=== PATIENT | male | born 1950 | race Caucasian/White ===

== ENCOUNTER 2016-11-15 20:09 | Emergency (ER) | payer BC ==
[2016-11-15] MEDS ORDERED: LORazepam INJ* 2 MG/ML 1 ML VIAL IM ONE (20:59)
[2016-11-15] MEDS ORDERED: LORazepam TAB(*) 1 MG PO ONE (21:00)
--- NOTE | 2016-11-15 21:12 | UC ---
Psychiatric Complaint HPI - HPI Summary HPI Summary: terrible anxiety and panic symptoms since putting down his 13 year old dog 2 days ago. Has a history of anxiety disorder which is triggered by traumatic events. Takes Zoloft daily, which is usually all he needs. But when there is a traumatic event, he can't sleep, can't eat, can't concentrate, cries a lot, paces around the house all day, feels anxious and jittery. Has been helped in the past by Xanax 0.5mg, but today they didn't help much. He has had a prescription of Xanax for the past 3 years, not taking them. Denies any suicidal or homicidal thoughts - History Of Current Complaint Chief Complaint: UCGeneralIllness Stated Complaint: PANIC ATTACK/ANXIETY Time Seen by Provider: 11/15/16 20:48 Hx Obtained From: Patient, Family/Consumer Safety Officer - Onset/Duration: Gradual Onset, Lasting Days - 2 Timing: Constant Severity Initially: Mild Severity Currently: Moderate Character: Fearful, Anxious Aggravating Factor(s): Recent Stress - had to put down old dog Alleviating Factor(s): Medication - Xanax helps a little, but he feels like he can't rest tonight Associated Signs And Symptoms: Sleep Disturbance, Appetite Change, Social Withdrawal Related History: Positive For: Prior Psychiatric Issues - anxiety/panic disorders, sees Dr. Mathew for it Recent Stressor(s): as above, dog put down - Risk Factor(s) Completed Suicide Risk Factors: Male, Age Greater Than 60, White Citizen Of [place] - Allergies/Home Medications Allergies/Adverse Reactions: Allergies Allergy/AdvReac Type Severity Reaction Status Date / Time Amoxicillin Allergy Unknown Verified 01/04/14 11:54 Reaction Details PMH/Surg Hx/FS Hx/Imm Hx - Additional Past Medical History Additional PMH: anxiety/panic attacks Cardiovascular History Of: Reports: Cardiac Disorders - high cholesterol, Hypertension - Surgical History Surgical History: Yes Surgery Procedure, Year, and Place: prostate removal 10 years ago - Family History Known Family History: Negative: Seizure Disorder - Social History Occupation: Employed Full-time Lives: With Family Alcohol Use: None Substance Use Type: None Smoking Status (MU): Heavy Every Day Tobacco Smoker Review of Systems Constitutional: Negative Skin: Negative Eyes: Negative ENT: Negative Respiratory: Negative Cardiovascular: Negative Gastrointestinal: Negative Genitourinary: Negative Motor: Negative Neurovascular: Negative Musculoskeletal: Negative Neurological: Negative Psychological: Anxious, Other - sad about the dog, feels jittery, can't concentrate, can't rest, can't sit still All Other Systems Reviewed And Are Negative: Yes Physical Exam Triage Information Reviewed: Yes Appearance: Well-Appearing, No Pain Distress, Well-Nourished Vital Signs: Initial Vital Signs Temp 98.3 F 11/15/16 20:19 Pulse 68 11/15/16 20:19 Resp 16 11/15/16 20:19 BP 170/96 11/15/16 20:19 Pulse Ox 100 11/15/16 20:19 Vital Signs Reviewed: Yes Eye Exam: Normal ENT Exam: Normal Neck exam: Normal Respiratory Exam: Normal Cardiovascular Exam: Normal Musculoskeletal Exam: Normal Neurological Exam: Normal Psychological Exam: Other - he is tearful when talking about his dog. Otherwise , he is pleasant and conversant, normal conversational content, coherent and logical. Denies any suicidal or homicidal thoughts. Psychological: Positive: Normal Response To Family, Age Appropriate Behavior Skin Exam: Normal Psych Complaint Course/Dx - Differential Dx/Diagnosis Differential Diagnosis/HQI/PQRI: Anxiety, Depression Provider Diagnoses: anxiety Discharge - Discharge Plan Condition: Stable Disposition: HOME Prescriptions: LORazepam TAB(*) [Ativan TAB(*)] 1 mg PO Q6H PRN #30 tab MDD 4 mg PRN Reason: anxiety/panic Patient Education Materials: Anxiety (ED) Referrals: Fam Mathew MD [Primary Care Provider] - Additional Instructions: Call Dr. Mathew tomorrow to set up a follow-up appointment. If you feel like you are at risk of harming yourself or others, go to the ER.
[2016-11-15] MEDS ORDERED: LORazepam TAB(*) 1 MG ONE (21:17)
[2016-11-15 21:44] VITALS: BP 158/91
== END 2016-11-15 21:42 | disposition home or self-care (01) ==
LOC: UCEAST 20:09
DX: F43.22 Adjustment disorder with anxiety (principal); Z88.0 Allergy status to penicillin; F17.210 Nicotine dependence, cigarettes, uncomplicated
CPT/HCPCS: 96372; 99213; A9270-GY; G0463; J2060

== ENCOUNTER 2018-05-19 06:35 | Day surgery (SDC) | payer MEDICARE, BC ==
--- NOTE | 2018-05-14 23:04 | HP ---
CC: Dr. Fam Mathew* HISTORY AND PHYSICAL: DATE OF PLANNED ADMISSION AND SURGERY: 05/19/18 HISTORY OF PRESENT ILLNESS: Mr. Thomas is a 68-year-old white male who is admitted with proximal right ureteral calculi for cystoscopy, placement of right ureteral stent, and for possible right ureteroscopy, and laser lithotripsy. I have been following Mr. Thomas since the year 1999 because of renal calculus disease. He required shockwave lithotripsy of right renal calculi in 1999 and again in 2002. In 2005, he was diagnosed with a Carnegie 6 adenocarcinoma of the prostate and underwent an uncomplicated radical retropubic prostatectomy. He has done very well and has had no recurrent disease and his PSA has remained at 0.0. He was evaluated in my office 2 weeks ago, because of sudden onset of right flank pain. He did not have any fever or chills. Renal ultrasound done in the office showed a 1 cm calculus in the proximal right ureter, about 2 cm distal to the ureteropelvic junction. There was only mild hydronephrosis. He was managed conservatively with alpha-abbie and pain medication. He remained minimally symptomatic. Followup renal ultrasound done a week after his initial presentation showed that the calculus is still in the same location. KUB confirmed the presence of a cluster of calculi in the area of the proximal right ureter plus calculi in his right kidney. Because of the above history, the size of the stone, and its location in the area of the proximal ureter, the above procedure was advised and accepted. PAST MEDICAL HISTORY AND SYSTEM REVIEW: Because of the history of renal calculus disease, he has been maintained on allopurinol 300 mg daily, vitamin B6 50 mg daily, calcium citrate 500 mg daily, and potassium citrate 20 mEq daily. He has hyperlipidemia, on atorvastatin 20 mg daily. He is hypertensive, on lisinopril 5 mg daily. He is on sertraline. He takes lorazepam as needed for sleep. ALLERGIES: He reports being allergic to PENICILLIN, which gives him hives. FAMILY HISTORY: Relevant for his father and brother who have prostate carcinoma. PHYSICAL EXAMINATION GENERAL: Pleasant, healthy, and fit-looking white male. VITAL SIGNS: Blood pressure 120/80, pulse of 80. LUNGS: Clear. HEART: Regular and rhythmic. No murmurs. ABDOMEN: Soft. No masses, no tenderness and no CVA tenderness. IMPRESSION: One cm calculus in the proximal right ureter with associated mild right hydronephrosis and non-obstructing right renal calculus. Status post radical retropubic prostatectomy for carcinoma of the prostate with no evidence of recurrent disease. PLAN: Cystoscopy and placement of right ureteral stent. If the stone is accessible, right ureteroscopy and laser lithotripsy will be performed at the same time. It is more likely that the patient will require a staged procedure and following the stent placement, a right ureteroscopy and laser lithotripsy for definitive treatment of the stone. I discussed the above plans in detail with Terrence and his and all their questions were answered. [id number]/[facility]PS #: [id number] MTDD
[~2018-05-19 06:35] MED LIST: Buffered Lidocaine 0.9% SYRIN* 5 ML/SYR SYRINGE INTRADERM ONE; Dexamethasone IV* 4 MG/ML 1 ML (4 MG) IV SLOW PU ONE; Famotidine IV* 10 MG/ML 2 ML (20 mg) IV ONE
[2018-05-19] MEDS ORDERED: Famotidine IV* 10 MG/ML 2 ML (20 mg) ONE (06:52)
[2018-05-19] MEDS ORDERED: Levofloxacin 750 MG IVPREMIX(* 750 MG/150 ML BAG ONE (06:52)
[2018-05-19] MEDS ORDERED: Dexamethasone IV* 4 MG/ML 1 ML (4 MG) ONE (06:52)
[2018-05-19] MEDS ORDERED: Iohexol 180 (CONTRAST) 10 ML SDV IV ONE (07:09)
[2018-05-19] MEDS ORDERED: fentaNYL* 50 MCG/ML 2 ML VIAL (100 MCG VIAL) IV PRN (07:15)
[2018-05-19] MEDS ORDERED: Naloxone* 0.4 MG/ML 1 ML VIAL IV PRN (07:15)
[2018-05-19] MEDS ORDERED: DiMENhydriNATE IV* 50 MG/ML VIAL IV PUSH PRN (07:15)
[2018-05-19] MEDS ORDERED: HYDROcodone/ACETAMIN 5-325 MG* 1 TAB PO PRN (07:15)
[2018-05-19] MEDS ORDERED: oxyCODONE/Acetamin 5/325 MG* TAB PO PRN (07:15)
[2018-05-19] MEDS ORDERED: fentaNYL* 50 MCG/ML 2 ML VIAL (100 MCG VIAL) ONE (07:16)
[2018-05-19] MEDS ORDERED: Midazolam* 1 MG/ML 5 ML VIAL (5 MG) ONE (07:16)
[2018-05-19] MEDS ORDERED: Propofol* 10 MG/ML 20 ML BTL IV PUSH ONE (07:37)
[2018-05-19] MEDS ORDERED: Lidocaine 2% PF * 5 ML VIAL ONE (07:37)
[2018-05-19] MEDS ORDERED: Ondansetron INJ* 2 MG/ML VIAL ONE (07:53)
[2018-05-19] MEDS ORDERED: EPHEDrine (Pressors)* 50 MG/ML VIAL ONE (08:01)
[2018-05-19 09:11] VITALS: BP 137/84
--- NOTE | 2018-05-19 09:17 | RAD ---
INDICATION: Right ureteral stent insertion COMPARISONS: May 07, 2018 TECHNIQUE: Fluoroscopy was provided for a retrograde pyelogram and stent placement. Total fluoroscopy time is: 8 seconds FINDINGS: Contrast is noted within the renal collecting system. Renal calculi are noted. A ureteral stent is noted. IMPRESSION: FLUOROSCOPY WAS PROVIDED FOR A RETROGRADE PYELOGRAM AND STENT PLACEMENT CPT II Codes: G9500
--- NOTE | 2018-05-19 09:43 | OP ---
DATE OF OPERATION: 05/19/18 - [facility] DATE OF : 54 SURGEON: Dallin Najera MD ANESTHESIOLOGIST: Dr. Nirmal Shepherd. ANESTHESIA: General. PRE-OP DIAGNOSES: 1. Right renal calculi. 2. Right ureteral calculus. POST-OP DIAGNOSIS: Right renal calculi. OPERATIVE PROCEDURE: 1. Cystoscopy. 2. Right retrograde pyelography and placement of right ureteral stent (6-Martiniquais ). INDICATION FOR PROCEDURE: Mr. Thomas is a 68-year-old white male who is a known stone former and who presented about 2 weeks ago with episodes of intermittent right flank pain and right renal colic. Workup with the KUB and a renal ultrasound showed right renal calculi and a 1 cm calculus in the proximal right ureter. The patient was improved spontaneously. Recent KUB showed 4 calculi in the lower pole calyx of the right kidney each measuring about 8 mm in size. No radiopaque calculus was noted in the proximal ureter. With the still concern about residual stone in the right ureter, the patient is taken to the operating room for the above procedure. PATHOLOGY: At cystoscopy, the penile and bulbar urethra looked normal. The external sphincter looked normal. There was absence of the prostate consistent with a history of radical retropubic prostatectomy for prostate carcinoma. The bladder neck was wide open without any contracture. Examination of the bladder showed normal ureteral orifices. No suspicious bladder lesion seen. No calculi or diverticula noted. There was some difficulty intubating the right ureter with the guidewire because of the radical prostatectomy changes. At fluoroscopy, 4 right renal calculi were noted. All of each measured about 8 mm in size. There were 2 calculi in the lower pole calyx and 2 calculi in the area of the right renal pelvis. Upon right retrograde pyelography, there was no ureteral calculus noted and no hydronephrosis. The patient was most likely having intermittent episodes of right renal colic secondary to one of the calculi in the right renal pelvis acting as a ball valve explaining the findings on the ultrasound and the clinical history. DESCRIPTION OF PROCEDURE: After successful general anesthesia, the patient was placed in the lithotomy position and was prepped and draped for a cystoscopy. Cystoscopy was performed. The bladder was carefully inspected and the above findings were noted. After several attempts, a flexible tip guidewire was successfully introduced into the right ureter and position in the area of the renal pelvis. A 5-Martiniquais open- ended catheter was fed on top of the guidewire. Retrograde pyelography was performed demonstrating the above anatomy of the right kidney and the pathology noted. Because of the location of the stones, it was decided to place a stent and not to attempt a ureteroscopy. A size 6-Martiniquais stent was then placed with the proximal end coiling in the renal pelvis on the collecting system and distal end coiling inside the bladder. There was good drainage of contrast from the kidney and no extravasation. The patient tolerated the procedure well and left the operating room in good condition. The plan is to obtain the KUB postoperatively. They will decide on the definitive treatment of the stones based on their location whether the patient is not required PCNL. [id number]/CPS #: [id number] MTDD
--- NOTE | 2018-05-19 11:02 | RAD ---
HISTORY: s/p right stent placement COMPARISONS: May 07, 2018 VIEWS: Frontal views of the abdomen. FINDINGS: BOWEL: There is a nonspecific bowel gas pattern, with nondilated small bowel gas noted. CALCULI: Again noted are multiple calculi overlying the right renal protocol shadows, similar to the previous examination. There is been interval placement of a right ureteral stent. BONES AND SOFT TISSUES: Degenerative changes are noted. OTHER FINDINGS: None . IMPRESSION: RIGHT NEPHROLITHIASIS WITH A RIGHT URETERAL STENT.
== END 2018-05-19 09:12 | disposition home or self-care (01) ==
LOC: OR 06:35
PROVIDERS: ATTEND Urology
DX: N20.0 Calculus of kidney (principal); Z87.442 Personal history of urinary calculi; Z85.46 Personal history of malignant neoplasm of prostate; I10 Essential (primary) hypertension; E78.5 Hyperlipidemia, unspecified; Z87.891 Personal history of nicotine dependence; F41.8 Other specified anxiety disorders
CPT/HCPCS: 74018; 74420; J1100; J2250; J2405; J2704; J3010

== ENCOUNTER → 2018-05-26 08:37 | Day surgery (SDC) | payer MEDICARE, BC ==
[~2018-05-26 08:37] MED LIST changes: +Atropine 1MG/ML INJ* 1 ML VIAL ONE; -Dexamethasone IV* 4 MG/ML 1 ML (4 MG) IV SLOW PU ONE; +Dexamethasone IV* 4 MG/ML 1 ML (4 MG) ONE; +EPHEDrine (Pressors)* 50 MG/ML VIAL ONE; -Famotidine IV* 10 MG/ML 2 ML (20 mg) IV ONE; +HYDROcodone/ACETAMIN 5-325 MG* 1 TAB PO PRN; +Midazolam* 1 MG/ML 2 ML VIAL (2 MG) ONE; +Naloxone* 0.4 MG/ML 1 ML VIAL IV PRN; +Ondansetron INJ* 2 MG/ML VIAL IV PRN; +Ondansetron INJ* 2 MG/ML VIAL ONE; +Propofol* 10 MG/ML 20 ML BTL IV PUSH ONE; +cefTRIAXone(*) 2 GM ADDV.VIAL IVPB ONE; +fentaNYL* 50 MCG/ML 2 ML VIAL (100 MCG VIAL) IV PRN; +fentaNYL* 50 MCG/ML 2 ML VIAL (100 MCG VIAL) ONE
--- NOTE | 2018-05-26 09:11 | RAD ---
INDICATION: Preop lithotripsy, right renal calculi. COMPARISON: Comparison is made with a prior KUB series from May 19, 2018. TECHNIQUE: A single frontal supine film of the abdomen was obtained FINDINGS: The small bowel and colon appear nondistended. There are multiple calculi which project over the mid and lower pole of the right kidney. There is a right ureteral stent present which demonstrates normal course. There are multiple surgical clips which project over the pelvis consistent with patient's history of a prior prostatectomy. IMPRESSION: MULTIPLE RIGHT RENAL CALCULI, URETERAL STENT IN PLACE.
[2018-05-26 13:49] VITALS: BP 140/84
--- NOTE | 2018-05-26 16:45 | RAD ---
Indication: Status post RIGHT side lithotripsy. Comparison: 0859 hours exam of the same date. Technique: Supine view of the abdomen. REPORT AND IMPRESSION: #. The RIGHT ureteral stent has been removed. No suspicious calcifications evident along the course of the RIGHT ureter. #. Significant fragmentation of previous well-formed stones at the level of the RIGHT renal pelvis with the residual fragments measuring up to approximate 0.3 cm maximum dimension. No significant change in 0.8 cm maximum dimension stone at the lower pole of the RIGHT kidney. #. No LEFT side urolithiasis evident. #. Pelvic surgical clips. Unremarkable soft tissue contours.
--- NOTE | 2018-05-26 22:11 | OP ---
CC: Dr. Mathew * DATE OF OPERATION: 05/26/18 - [facility] DATE OF : 54 SURGEON: Dallin Najera MD ANESTHESIOLOGIST: Dr. Maxwell Nielson. ANESTHESIA: General. PRE-OP DIAGNOSES: 1. Right renal calculi. 2. Status post placement of right ureteral stent. POST-OP DIAGNOSES: 1. Right renal calculi. 2. Status post placement of right ureteral stent. OPERATIVE PROCEDURE: 1. Shock-wave lithotripsy of right renal calculi ( In renal pelvis, 2 calculi, 8 mm each). 2. Cystoscopy and removal of right ureteral stent. INDICATIONS FOR PROCEDURE: Mr. Thomas is a 68-year-old white male who had placement of a right ureteral stent one week ago. Post op KUB showed 2 calculi, 8 mm each in the renal pelvis, and 2 other calculi measuring 8 mm each in the lower pole chano of the right kidney. The calculi in the renal pelvis were felt to be amenable to shock-wave lithotripsy and the patient is admitted for the above procedure. PATHOLOGY: Preoperative KUB showed again 2 calculi each measuring 8 mm in diameter located in the right renal pelvis. Two other calculi 8 mm each were superimposed in the lower pole chano of the right kidney. This stent was in good position. At cystoscopy, there was hematuria. There was absence of the prostate consistent with a history of radical prostatectomy. There was no bladder neck contracture. The distal limb of the stent was seen coming from the right orifice. DESCRIPTION OF PROCEDURE: After successful general anesthesia, the patient was placed in the supine position on the shock-wave lithotripsy table. The position of the patient and of the generator were adjusted to have the 2 stones in the renal pelvis in the focus of the shock waves. A total of 2,400 shock waves were then delivered at a rate of 60 shocks per minute. Because of PVCs, the shock waves were coupled with his heart rate, which was running at about 66. At the completion of the treatment, there was very good fragmentation of both calculi. Decision was then made to remove the stent. The bladder was drained with a straight catheter. Flexible cystoscopy was performed. The stent was identified , grabbed, and pulled out intact. The patient tolerated the procedure well and left the operating room in good condition. The plan is to obtain a KUB postoperatively. The patient was instructed for the possible development of right renal colic as the fragments are passing. He will be seen in my office in about 10 to 12 days for followup. [id number]/[facility] #: [id number] MTDD
== END | disposition home or self-care (01) ==
LOC: OR 08:37
PROVIDERS: ATTEND Urology
DX: N20.0 Calculus of kidney (principal); R31.9 Hematuria, unspecified; Z85.46 Personal history of malignant neoplasm of prostate; E78.5 Hyperlipidemia, unspecified; I10 Essential (primary) hypertension; F41.9 Anxiety disorder, unspecified
CPT/HCPCS: 74018; J0461; J0696; J1100; J2250; J2405; J2704; J3010

== ENCOUNTER 2018-08-04 05:50 | Day surgery (SDC) | payer MEDICARE, BC ==
--- NOTE | 2018-07-18 07:49 | HP ---
CC: Dr. Mathew * HISTORY AND PHYSICAL: DATE OF PLANNED ADMISSION AND SURGERY: 08/04/18 HISTORY OF PRESENT ILLNESS: Mr. Terrence Thomas is a 68-year-old white male who is admitted with right renal calculi for shockwave lithotripsy and for cystoscopy and placement of right ureteral stent. Mr. Terrence Thomas is a known stone former and on his recent workup and imaging, he was noted to have 4 right renal calculi each measuring about 6 to 8 mm. Two of the stones were located in the renal pelvis and 2 stones in the lower pole calyx of his right kidney. On 05/19/18, he had placement of right ureteral stent and on 05/26/18, he underwent shockwave lithotripsy of the 2 calculi in the right renal pelvis followed by stent removal. Following the stent removal, he passed all the stone fragments. He still had 2 residual right renal calculi that were not treated. Followup imaging with KUB and renal ultrasound showed one of the 2 calculi has moved to the right ureteropelvic junction causing no obstruction and no symptoms. The other calculus is still in the lower pole calyx of the right kidney. The patient is totally asymptomatic and having no renal or voiding symptoms. He is now admitted for treatment of the above stones. PAST MEDICAL HISTORY AND SYSTEM REVIEW: He has a history of prostate carcinoma and had undergone radical prostatectomy in 2005. He has done very well and his PSA has remained undetectable at 0.0. He has no urinary incontinence and no voiding symptoms. MEDICATIONS: The patient is maintained on: 1. Allopurinol 300 mg daily. 2. Vitamin B6 50 mg daily. 3. Calcium citrate 500 mg daily. 4. Potassium citrate 20 mEq daily. All those medications are for treatment and prevention of renal calculi. He has hyperlipidemia, on Lipitor 20 mg daily and has hypertension, on 5 mg daily. He is on sertraline and lorazepam as needed. ALLERGIES: He reports being allergic to PENICILLIN, which gives him hives. PHYSICAL EXAMINATION GENERAL: Pleasant, healthy and fit looking white male. VITAL SIGNS: Blood pressure 130/80, pulse of 70. LUNGS: Clear. HEART: Regular and rhythmic. No murmurs. ABDOMEN: Soft. No masses. No tenderness and no CVA tenderness. IMPRESSION: Residual 2 right renal calculi, each is above 6 to 8 mm in size, 1 in the lower pole calyx and the other calculus in the renal pelvis. PLAN: The plan is for shockwave lithotripsy of the right renal calculi and placement of right ureteral stent. I discussed the above plans in detail with the patient. All his questions were answered. The patient was instructed to call promptly if he has an episode of renal colic and in that case he will require stent placement followed at a later date by shockwave lithotripsy. [id number]/[facility] #: [id number] MARU
[2018-08-04] MEDS ORDERED: Famotidine IV* 10 MG/ML 2 ML (20 mg) IV ONE (06:00)
[2018-08-04] MEDS ORDERED: Buffered Lidocaine 0.9% SYRIN* 5 ML/SYR SYRINGE INTRADERM ONE (06:00)
[2018-08-04] MEDS ORDERED: Famotidine IV* 10 MG/ML 2 ML (20 mg) ONE (06:08)
[2018-08-04] MEDS ORDERED: Levofloxacin 750 MG IVPREMIX(* 750 MG/150 ML BAG ONE (06:08)
[2018-08-04] MEDS ORDERED: Morphine VIAL* 10 MG/ML 1 ML VIAL ONE (06:48)
[2018-08-04] MEDS ORDERED: Iohexol 180 (CONTRAST) 10 ML SDV IV ONE (06:59)
[2018-08-04] MEDS ORDERED: Dexamethasone IV* 4 MG/ML 1 ML (4 MG) ONE (07:09)
[2018-08-04] MEDS ORDERED: Propofol* 10 MG/ML 20 ML BTL IV PUSH ONE (07:09)
[2018-08-04] MEDS ORDERED: Lidocaine 2% PF * 5 ML VIAL ONE (07:09)
[2018-08-04] MEDS ORDERED: Ondansetron INJ* 2 MG/ML VIAL ONE (07:09)
[2018-08-04] MEDS ORDERED: Ketorolac INJ* 30 MG/ML 1 ML VIAL ONE (07:09)
[2018-08-04] MEDS ORDERED: KETAMINE HCL* 50 MG/ML 10 ML VIAL ONE (07:09)
[2018-08-04] MEDS ORDERED: fentaNYL* 50 MCG/ML 2 ML VIAL (100 MCG VIAL) ONE (07:09)
[2018-08-04] MEDS ORDERED: Midazolam* 1 MG/ML 5 ML VIAL (5 MG) ONE (07:10)
[2018-08-04] MEDS ORDERED: fentaNYL* 50 MCG/ML 2 ML VIAL (100 MCG VIAL) IV PRN (07:25)
[2018-08-04] MEDS ORDERED: oxyCODONE/Acetamin 5/325 MG* TAB PO PRN (07:25)
[2018-08-04] MEDS ORDERED: Ondansetron INJ* 2 MG/ML VIAL IV PRN (07:25)
[2018-08-04] MEDS ORDERED: Naloxone* 0.4 MG/ML 1 ML VIAL IV PRN (07:25)
[2018-08-04] MEDS ORDERED: EPHEDrine (Pressors)* 50 MG/ML VIAL ONE (08:05)
[2018-08-04 09:57] VITALS: BP 143/83
--- NOTE | 2018-08-04 23:08 | OP ---
CC: Dr. Mathew * DATE OF OPERATION: 08/04/18 - [facility] DATE OF : 54 SURGEON: Dallin Najera MD ANESTHESIOLOGIST: Dr. Daren Padilla. ANESTHESIA: General. PRE-OP DIAGNOSIS: Right renal calculi. POST-OP DIAGNOSIS: Right renal calculi. OPERATIVE PROCEDURE: 1. Cystoscopy. 2. Right retrograde pyelography and placement of right ureteral stent (6-Greenlandic ). 3. Shockwave lithotripsy of 2 right renal calculi (7 mm each). INDICATION FOR PROCEDURE: Mr. Thomas is a 68-year-old white male, who is a stone former and who had 4 right renal calculi each measuring 6 to 7 mm in size. He underwent shockwave lithotripsy of the 2 calculi about two and a half months ago and he passed all the fragments. One of the residual calculi migrated into the renal pelvis. Because of that finding, the patient is brought in for the above procedure. Preoperative KUB showed that there were 2 right renal calculi measuring about 7 mm each. One was located in the lower pole calyx and other one located in the lower pole infundibulum. At cystoscopy, the penile and bulbar urethrae looked normal. There was absent prostatic urethra consistent with history of radical prostatectomy. The bladder neck was opened. The ureteral orifices looked normal. There were no suspicious bladder lesions seen. Upon right retrograde pyelography, there was no hydronephrosis noted. DESCRIPTION OF PROCEDURE: Because of the expected stone burden following the shockwave lithotripsy, it was decided to place a right ureteral stent. Cystoscopy was performed. The right retrograde pyelography was then performed. A size 6- Greenlandic stent was then placed with the proximal end coiling in the renal pelvis and the distal end coiling inside the bladder. The patient was then placed in the supine position on the shockwave lithotripsy table. The calculus in the lower pole infundibulum was treated first. The calculus in the lower pole calyx was then treated with shockwave litho. A total of 2400 shocks were delivered at a rate of 60 shocks per minute. A 3- minute break was taken after the initial 300 shocks to decrease the risk of renal injury. The proper positioning and fragmentation of the stones were monitored by fluoroscopy periodically. At the completion of the treatment, there was very good fragmentation of both calculi. The urine was as expected in the [place] was lighted rivas color. The patient tolerated the procedure well and left the operating room in good condition. The plan is to keep the stent in for 10 to 14 days to allow the passive dilation of the ureter. It will be removed in the office under local anesthesia. [id number]/[facility] #: [id number] MTDD
== END 2018-08-04 09:58 | disposition home or self-care (01) ==
LOC: OR 05:50
PROVIDERS: ATTEND Urology
DX: N20.0 Calculus of kidney (principal); Z87.442 Personal history of urinary calculi; Z85.46 Personal history of malignant neoplasm of prostate; I10 Essential (primary) hypertension; J45.909 Unspecified asthma, uncomplicated; F41.8 Other specified anxiety disorders
CPT/HCPCS: 74018; C1876; J1100; J1885; J2250; J2270; J2405; J2704; J3010

== ENCOUNTER 2019-09-01 17:35 | Emergency (ER) | payer MEDICARE, BC ==
--- NOTE | 2019-09-01 20:25 | ED ---
Lower Extremity - HPI Summary HPI Summary: Patient complains of left knee pain status post mechanical fall today. Denies any other pain, injury or symptoms. Patient ambulatory with pain and difficulty. - History of Current Complaint Chief Complaint: EDFall Stated Complaint: LT KNEE INJURY PER PT Time Seen by Provider: 09/01/19 20:23 Hx Obtained From: Patient Mechanism Of Injury: Blunt Trauma, Fall From A Standing Position Onset of Pain: Immediate Severity Initially: Mild Severity Currently: Mild Pain Intensity: 1 Pain Scale Used: 0-10 Numeric Timing: Constant Location: Is Discrete @ Character Of Pain: Dull Associated Signs And Symptoms: Positive: Negative Aggravating Factor(s): Ambulation Alleviating Factor(s): Rest, Elevation Able to Bear Weight: Yes - Allergies/Home Medications Allergies/Adverse Reactions: Allergies Allergy/AdvReac Type Severity Reaction Status Date / Time Penicillins Allergy Hives Verified 09/01/19 18:11 PMH/Surg Hx/FS Hx/Imm Hx Cardiovascular History: Reports: Hx Hypertension, Other Cardiovascular Problems/ Disorders - hyperlipidemia Respiratory History: Reports: Hx Asthma - Excercise induced asthma-has ventolin prn, hardly ever uses Denies: Other Respiratory Problems/Disorders GI History: Denies: Other GI Disorders History: Reports: Hx Kidney Stones - RIGHT., Other Problems/Disorders - prostate CA Musculoskeletal History: Denies: Other Musculoskeletal History Sensory History: Reports: Hx Contacts or Glasses - glasses Denies: Hx Cataracts, Hx Glaucoma, Hx Hearing Aid Opthamlomology History: Reports: Hx Contacts or Glasses - glasses Denies: Hx Cataracts, Hx Glaucoma EENT History: Denies: Hx Deafness Neurological History: Reports: Other Neuro Impairments/Disorders - hx of panic attack Psychiatric History: Reports: Hx Anxiety, Hx Depression - Cancer History Cancer Type, Location and Year: prostate - removed Hx Chemotherapy: No - Surgical History Surgery Procedure, Year, and [place] [facility] [place] [facility] [place] [facility] [place] Anesthesia Reactions: No Infectious Disease History: No Infectious Disease History: Denies: Traveled Outside the [place] in Last 30 Days - Family History Known Family History: Negative: Seizure Disorder - Social History Alcohol Use: Rare Substance Use Type: Reports: None Smoking Status (MU): Current Every Day Smoker Type: Smokeless Tobacco Amount Used/How Often: reports one can of chew per week for 30 years Have You Smoked in the Last Year: No Review of Systems Constitutional: Negative Eyes: Negative ENT: Negative Cardiovascular: Negative Respiratory: Negative Gastrointestinal: Negative Genitourinary: Negative Musculoskeletal: Other Skin: Negative Neurological: Negative Psychological: Normal All Other Systems Reviewed And Are Negative: Yes Physical Exam - Summary Physical Exam Summary: Patient unable to extend knee. Mild diffuse swelling. Pulses intact distally. Triage Information Reviewed: Yes Vital Signs On Initial Exam: Initial Vitals Temp Pulse Resp BP Pulse Ox 97.4 F 66 16 160/91 96 09/01/19 18:07 09/01/19 18:07 09/01/19 18:07 09/01/19 18:07 09/01/19 18:07 Appearance: Positive: Well-Appearing Skin: Positive: Warm Head/Face: Positive: Normal Head/Face Inspection Eyes: Positive: Normal Neck: Positive: Supple Respiratory/Lung Sounds: Positive: Clear to Auscultation Cardiovascular: Positive: Normal Abdomen Description: Positive: Nontender Musculoskeletal: Positive: Normal Neurological: Positive: Normal Psychiatric: Positive: Normal AVPU Assessment: Alert - Ernesto Coma Scale Best Eye Response: 4 - Spontaneous Best Motor Response: 6 - Obeys Commands Best Verbal Response: 5 - Oriented Coma Scale Total: 15 Procedures - Sedation Patient Received Moderate/Deep Sedation with Procedure: No Diagnostics - Vital Signs Vital Signs Temp Pulse Resp BP Pulse Ox 09/01/19 18:07 97.4 F 66 16 160/91 96 - Laboratory Lab Statement: Any lab studies that have been ordered have been reviewed, and results considered in the medical decision making process. Lower Extremity Course/Dx - Course Course Of Treatment: Patient complains of left knee pain status post mechanical fall today. Denies any other pain, injury or symptoms. Patient ambulatory with pain and difficulty. Vital signs within normal limits. Patient unable to extend left knee from flexed position. X-ray positive for patellar fracture. Patient placed in immobilizer and provided with crutches. Advised to follow-up with orthopedics Dr. Bryant tomorrow. cant extend left knee form flexed postion. - Diagnoses Provider Diagnoses: Patellar tendon rupture Discharge ED - Sign-Out/Discharge Documenting (check all that apply): Patient Departure - Discharge Plan Condition: Stable Disposition: HOME Patient Education Materials: Patellar Fracture (ED) Referrals: Fam Mathew MD [Primary Care Provider] - Mike Bryant MD [Medical Doctor] - Additional Instructions: Follow-up tomorrow with clinic of orthopedics Dr. Bryant for further evaluation. Alternate ibuprofen 600 mg with Tylenol 650 mg every 3 hours as needed for pain. No weightbearing on left leg. Wear brace and use crutches until evaluated by orthopedics. - Billing Disposition and Condition Condition: STABLE Disposition: Home
[2019-09-01 22:19] VITALS: BP 170/87
== END 2019-09-01 21:45 | disposition home or self-care (01) ==
LOC: ED 17:35
DX: S76.112A Strain of left quadriceps muscle, fascia and tendon, initial encounter (principal); S82.002A Unspecified fracture of left patella, initial encounter for closed fracture; W19.XXXA Unspecified fall, initial encounter; Y92.9 Unspecified place or not applicable; I10 Essential (primary) hypertension; J45.990 Exercise induced bronchospasm; Z88.0 Allergy status to penicillin; F17.220 Nicotine dependence, chewing tobacco, uncomplicated
CPT/HCPCS: 99282

== ENCOUNTER 2019-09-10 06:25 | Day surgery (SDC) | payer MEDICARE, BC ==
--- NOTE | 2019-09-04 06:35 | HP ---
HISTORY AND PHYSICAL: DATE OF ADMISSION: 09/10/19 CHIEF COMPLAINT: Left knee pain. HISTORY OF PRESENT ILLNESS: Mr. Thomas is a 69-year-old gentleman who slipped on a icy step on 09/01/19. He immediately had 9/10 pain in the left knee. He was unable to stand on the knee. This was sharp pain along the parapatellar region of the left knee, made worse with weight-bearing or attempting to move the knee. He was seen in the emergency room and diagnosed with a patella fracture. The patient reports he has been in a knee immobilizer with crutches and ice. The pain is minimal if he is in the immobilizer and the pain is decreased if he elevates and ices. No prior injury of trauma to the knee. HOME MEDICATIONS: 1- allopurinol 300 mg po qdaily 2- lisinopril 5 mg po qdaily 3- atorvastatin 20 mg po qhs 4- sertraline 100 mg po qdaily 5- potassium citrate ER 10 po qdaily ALLERGIES: penicillin PAST MEDICAL HISTORY: Anxiety, hypertension, hypercholesterolemia, prostate cancer, nephrolithiasis. PAST SURGICAL HISTORY: Lithotripsy of nephrolithiasis, hernia repair, prostatectomy. FAMILY HISTORY: Diabetes, heart disease, hypertension. SOCIAL HISTORY: The patient lives with his . He is a retired lead carpenter. He chews tobacco for many years. Two alcoholic beverages per year. No recreational drugs. Normally active with wood working and walking, right-hand dominant. REVIEW OF SYSTEMS: Fourteen systems reviewed with the patient today. Positive for history of recent falls, left knee pain and weakness, left knee swelling, history of kidney stones and anxiety. Otherwise, the patient reports review of systems is negative or not relevant. He denies fevers, chills, chest pain, shortness of breath. PHYSICAL EXAMINATION GENERAL: The patient is a well-nourished male in no apparent distress. Alert and oriented x3. Pleasant mood and appropriate affect. VITAL SIGNS: Height 5 feet 7 inches tall, weight of 177 pounds. Pulse 76, blood pressure 139/80. GAIT: The patient's gait is antalgic favoring the left leg. Balance decreased single leg stance. Coordination normal. HEENT: Atraumatic, normocephalic. Pupils are equal and reactive to light. NECK: Supple. Trachea midline. No palpable lymph nodes. LUNGS: Clear to auscultation in all lung miner. No wheezes, rubs, or rhonchi. HEART: S1 and S2. No audible rubs or gallops. No audible murmur. ABDOMEN: Soft, nontender, nondistended. Bowel sounds in 4 quadrants. EXTREMITIES: Left lower extremity: The patient's skin is intact. No abrasions or open wounds. No palpable masses or lymph nodes. He has a large effusion at the knee joint. No active straight leg raise at the left knee. Tenderness in the peripatellar region. No varus or valgus instability distally. No edema, varicosities, or hyperreflexia. He can actively dorsiflex and plantar flex. 2+ palpable DP pulse. Full sensation to light touch in all nerve distributions. RADIOGRAPHS: Multiple views of the left knee show a small avulsion fracture of the inferior pole of the patella with patella aicha indicating patellar tendon rupture. ASSESSMENT AND PLAN: Mr. Thomas is a 69-year-old gentleman, status post fall on 09/01/19 with left knee pain secondary to likely patellar tendon rupture and patellar avulsion fracture. The patient, his , and I discussed the risks and benefits of operative and nonoperative treatment. We have reviewed the x- rays today. They would like to proceed with open patellar tendon repair and we will tentatively schedule this for 09/10/19. He will need preoperative medical clearance from his primary care physician Dr. Mathew. I will request authorization for an MRI of the left knee to confirm the patellar tendon rupture and evaluate the integrity of the distal patellar tendon, this would be for preoperative planning. The patient and I discussed the risks of surgery. He understands the risks include but are not limited to bleeding, infection, damage to nearby structures , continued pain, need for further surgery, failure of the repair, extensor lag and weakness, stroke, heart attack, blood clot, and . He wishes to proceed. The patient will have preoperative clearance from Dr. Mathew. This note will serve as his preoperative history and physical exam. We will tentatively schedule him for 09/10/19 left patellar tendon repair. Until then he will be in a knee immobilizer, weight-bearing as tolerated with ice and the anti- inflammatories for pain control. [id number]/[facility] #: [id number] [facility]
[~2019-09-10 06:25] MED LIST changes: -Atropine 1MG/ML INJ* 1 ML VIAL ONE; -Buffered Lidocaine 0.9% SYRIN* 5 ML/SYR SYRINGE INTRADERM ONE; +Buffered Lidocaine 1% SYRIN* 1 ML/SYRINGE INTRADERM ONE; +Dexamethasone IV* 4 MG/ML 1 ML (4 MG) IV SLOW PU ONE; -Dexamethasone IV* 4 MG/ML 1 ML (4 MG) ONE; -EPHEDrine (Pressors)* 50 MG/ML VIAL ONE; +Famotidine IV* 10 MG/ML 2 ML (20 mg) IV ONE; -HYDROcodone/ACETAMIN 5-325 MG* 1 TAB PO PRN; +Lactated Ringers 1000 ML Bag* 1,000 ML IV SCH; -Midazolam* 1 MG/ML 2 ML VIAL (2 MG) ONE; -Naloxone* 0.4 MG/ML 1 ML VIAL IV PRN; -Ondansetron INJ* 2 MG/ML VIAL IV PRN; -Ondansetron INJ* 2 MG/ML VIAL ONE; -Propofol* 10 MG/ML 20 ML BTL IV PUSH ONE; -cefTRIAXone(*) 2 GM ADDV.VIAL IVPB ONE; -fentaNYL* 50 MCG/ML 2 ML VIAL (100 MCG VIAL) IV PRN; -fentaNYL* 50 MCG/ML 2 ML VIAL (100 MCG VIAL) ONE
[2019-09-10] MEDS ORDERED: Buffered Lidocaine 1% SYRIN* 1 ML/SYRINGE INTRADERM ONE (06:46)
[2019-09-10] MEDS ORDERED: Famotidine IV* 10 MG/ML 2 ML (20 mg) ONE (06:46)
[2019-09-10] MEDS ORDERED: Dexamethasone IV* 4 MG/ML 1 ML (4 MG) ONE (06:46)
[2019-09-10] MEDS ORDERED: Clindamycin 900 MG/D5W BAG(*) 900 MG/50 ML BAG IVPB ONE (06:46)
[2019-09-10] MEDS ORDERED: Phenylephrine 10 MG/ML VIAL* 1 ML VIAL ONE (07:20)
[2019-09-10] MEDS ORDERED: Ketorolac INJ* 30 MG/ML 1 ML VIAL ONE (07:46)
[2019-09-10] MEDS ORDERED: Lidocaine 2% PF * 5 ML VIAL ONE (07:46)
[2019-09-10] MEDS ORDERED: Propofol* 10 MG/ML 20 ML BTL ONE (07:46)
[2019-09-10] MEDS ORDERED: Ondansetron INJ* 2 MG/ML VIAL ONE (07:46)
[2019-09-10] MEDS ORDERED: Midazolam* 1 MG/ML 5 ML VIAL (5 MG) ONE (07:47)
[2019-09-10] MEDS ORDERED: fentaNYL* 50 MCG/ML 5 ML VIAL (250 MCG VIAL) ONE (07:47)
[2019-09-10] MEDS ORDERED: EPHEDrine (Pressors)* 50 MG/ML VIAL ONE (08:05)
[2019-09-10] MEDS ORDERED: oxyCODONE/Acetamin 5/325 MG* TAB PO PRN (08:18)
[2019-09-10] MEDS ORDERED: HYDROmorphone INJ1* 1 MG/ML SYRINGE IV PRN (08:18)
[2019-09-10] MEDS ORDERED: fentaNYL* 50 MCG/ML 2 ML VIAL (100 MCG VIAL) IV PRN (08:18)
[2019-09-10] MEDS ORDERED: Naloxone* 0.4 MG/ML 1 ML VIAL IV PRN (08:18)
[2019-09-10] MEDS ORDERED: Ondansetron INJ* 2 MG/ML VIAL IV PRN (08:18)
[2019-09-10] MEDS ORDERED: DiMENhydriNATE IV* 50 MG/ML VIAL IV PUSH PRN (08:18)
[2019-09-10] MEDS ORDERED: Glycopyrrolate IV* 0.2 MG/ML 1 ML VIAL ONE (08:57)
[2019-09-10] MEDS ORDERED: fentaNYL* 50 MCG/ML 2 ML VIAL (100 MCG VIAL) ONE ×2 (09:07→10:13)
[2019-09-10] MEDS ORDERED: oxyCODONE/Acetamin 5/325 MG* TAB ONE (10:18)
[2019-09-10 10:33] VITALS: BP 164/102
--- NOTE | 2019-09-11 02:52 | OP ---
DATE OF OPERATION: 09/10/19 - [facility] DATE OF : 54 SURGEON: Sanna Barnett MD FINISHING TUNNEL OPERATOR: DANIEL Mccurdy. Ms. García did help throughout the procedure with preparation of the leg, wound retraction, manipulation of the knee and wound closure. ANESTHESIOLOGIST: Dr. Max. ANESTHESIA: General. PRE-OP DIAGNOSIS: Left knee patellar tendon rupture. POST-OP DIAGNOSIS: Left knee patellar tendon rupture. OPERATIVE PROCEDURE: Left knee open patellar tendon repair. TOURNIQUET TIME: 27 minutes. COMPLICATIONS: None. SPECIMEN: None. BRIEF HISTORY/INDICATIONS: Mr. Thomas is a 69-year-old gentleman who slipped on some ice he stepped on 09/01/19. The patient had immediate pain and was diagnosed with an avulsion fracture of the inferior patella at an Urgent Care. I saw him in clinic and diagnosed him with a patellar tendon rupture with an associated avulsion of the inferior patella. The patient and I discussed operative and nonoperative treatment options. He wished to proceed with open repair of the patellar tendon. Preoperative MRI was obtained and did confirm this diagnosis. Informed consent was obtained from the patient. He understood the risks of surgery included but were not limited to bleeding, infection, damage to nearby structures, continued pain, need for further surgery, intraoperative fracture, nerve palsy, repair failure, need for further surgery, knee stiffness, loss of motion, stroke, heart attack, blood clot, and . He wished to proceed. INTRAOPERATIVE FINDINGS: Intraoperatively, the patient had minimal lack of bone from the inferior patella that had avulsed with the tendon rupture. This was a patella tendon rupture along the superior patellar tendon and inferior patella bone. Unfortunately, he was noted to have severe advanced osteoarthritis of the knee joint for patellar surgery with extensive osteophyte formation and cartilage loss. DESCRIPTION OF PROCEDURE: Mr. Thomas was identified in the preanesthesia unit. His left lower extremity was marked as the correct operative site. Informed consent was signed and placed in the chart. The patient was taken to the operating room and placed under anesthesia. Tourniquet was placed on the left thigh. Left lower extremity was prepped and draped in the usual sterile fashion. Pre-op time out was made to correctly identify the patient, side and site. Appropriate perioperative antibiotics were given within 1 hour of incision. Tourniquet was inflated and the total tourniquet time for the procedure was 27 minutes. A midline incision was made with a 10-blade and carried down to the extensor mechanism. Immediate disruption of the superior patellar tendon and medial retinaculum was visualized. The knee joint was copiously irrigated with sterile saline. The knee joint was examined and found to have extensive osteoarthritis and osteophyte formation. There was a small avulsion fracture of the patella with small fragment of bone was carefully removed with the rongeur. Inferior edge of the patella was roughened with the rongeur so there was a trough for tendon healing. Superior patellar tendon was cleaned of any incompetent tendon fibers for the repair. Number 5 ethibond suture was run longitudinally along the patellar tendon using a Krackow stitch and the free ends were left out superiorly. A 2.5 drill bit was used to make two longitudinal tunnels through the midportion of the patella. A Fleksy suture passer was used to thread the ethibond through the patella and the ends were tied. The repair was solid and the tendon looked anatomic. Two c arm views showed satisfactory position of the patella. The retinaculum and any remaining torn soft tissue was reapproximated using number 5 ethibonds. The tourniquet was turned down at 27 minutes. The rest of the incision was closed using 0 and 2-0 vicryls. The skin was closed with monocryl and dermabond. Adaptic and sterile 4x4's were used to cover the incision, with webril and jones wrap over this. A knee immobilizer was placed and the patient's anesthesia was reversed without difficulty. He was taken to the PACU in stable condition. He will be weight bearing as tolerated with the knee in extension at all times. He will follow up in one week for a wound check. [id number]/[facility] #: [id number] [facility]
== END 2019-09-10 11:24 | disposition home or self-care (01) ==
LOC: OR 06:25
PROVIDERS: ATTEND Orthopaedic Surgery Adult Reconstructive Orthopaedic Surgery
DX: S76.112A Strain of left quadriceps muscle, fascia and tendon, initial encounter (principal); W00.1XXA Fall from stairs and steps due to ice and snow, initial encounter; Y92.9 Unspecified place or not applicable; I10 Essential (primary) hypertension; E78.00 Pure hypercholesterolemia, unspecified; C61 Malignant neoplasm of prostate; F41.9 Anxiety disorder, unspecified
CPT/HCPCS: 76000; A9270-GY; J1100; J1885; J2250; J2405; J2704; J3010